=== PATIENT | male | born 1950 | race Caucasian/White ===

== ENCOUNTER → 2020-08-02 | Outpatient (CLI) | payer BC, MEDICARE ==
[~2020-08-02] MED LIST: LISI-170 PO; OMEP40CA42 PO; SIMV40TA20 PO
== END | disposition home or self-care (01) ==
LOC: STAR 15:56
PROVIDERS: ATTEND Anesthesiology
DX: Z01.812 Encounter for preprocedural laboratory examination (principal); Z20.828 Contact with and (suspected) exposure to other viral communicable diseases
CPT/HCPCS: 36415; 87635

== ENCOUNTER 2020-08-06 06:51 | Day surgery (SDC) | payer BC, MEDICARE ==
[~2020-08-06] VITALS: Ht 177.8 cm; Wt 62.7 kg
[2020-08-06] MEDS ORDERED: LACTATED RINGERS 1,000 ML IV SCH (07:33)
[2020-08-06] MEDS ORDERED: LISI-170 PO (07:38)
[2020-08-06] MEDS ORDERED: OMEP40CA42 PO (07:38)
[2020-08-06] MEDS ORDERED: SIMV40TA20 PO (07:38)
[2020-08-06 07:41] VITALS: BP 138/93
[2020-08-06] MEDS ORDERED: CHLORHEXIDINE 15 ML UDC MM ONE (08:00)
[2020-08-06] MEDS ORDERED: FENTANYL PF 100 MCG/2ML IV PRN (08:00)
[2020-08-06] MEDS ORDERED: PROMETHAZINE 25 MG/ML, 1ML IVPush PRN (08:00)
[2020-08-06 08:24] LABS: BASOPHILS # (AUTO) 0.04 x10^3/uL (0-0.1); BASOPHILS % (AUTO) 1 % (0-1); EOSINOPHILS # (AUTO) 0.21 x10^3/uL (0-0.4); EOSINOPHILS % (AUTO) 3 % (1-7); LYMPHOCYTES % (AUTO) 27 % (22-44); MD NO; MEAN CORPUSCULAR HEMOGLOBIN 30.6 pg (27.5-34.5); MEAN CORPUSCULAR HGB CONC 32.4 g/dL (33.2-36.2); MEAN PLATELET VOLUME 7.6 fL (7.4-10.4); MONOCYTES # (AUTO) 0.71 x10^3/uL (0.2-0.8); MONOCYTES % (AUTO) 11 % (2-9); NEUTROPHILS # (AUTO) 3.61 x10^3/uL (1.8-6.8); NEUTROPHILS % (AUTO) 58 % (42-75); PLATELET COUNT 448 x10^3/uL (130-400); RED BLOOD COUNT 4.31 x10^6/uL (4.38-5.82); RED CELL DISTRIBUTION WIDTH 14.5 % (9.4-14.8)
[2020-08-06 08:31] LABS: ALANINE AMINOTRANSFERASE 24 U/L (12-78); ALBUMIN 3.7 g/dL (3.4-5.0); ANION GAP 5 mmol/L (5-15); CALCIUM 9.8 mg/dL (8.5-10.1); CHLORIDE 106 mmol/L (98-107)
[2020-08-06 08:34] LABS: ALKALINE PHOSPHATASE 91 U/L (45-117); BILIRUBIN,TOTAL 0.3 mg/dL (0.2-1.0); CREATININE 1.25 mg/dL (0.7-1.3); TOTAL PROTEIN 8.2 g/dL (6.4-8.2)
[2020-08-06] MEDS ORDERED: PHENYLEPHRINE 10 MG/ML ONE (08:53)
[2020-08-06] MEDS ORDERED: EPHEDRINE 50 MG/ML, 1ML ONE (08:53)
[2020-08-06] MEDS ORDERED: PROPOFOL 10 MG/ML, 20ML ONE (08:53)
[2020-08-06] MEDS ORDERED: FENTANYL PF 100 MCG/2ML ONE (09:13)
[2020-08-06] MEDS ORDERED: MIDAZOLAM 1 MG/ML, 2ML ONE (09:13)
== END 2020-08-06 11:35 | disposition home or self-care (01) ==
LOC: OUT 06:51
PROVIDERS: ATTEND Internal Medicine
DX: K85.90 Acute pancreatitis without necrosis or infection, unspecified (principal); K86.1 Other chronic pancreatitis; K29.70 Gastritis, unspecified, without bleeding; B17.9 Acute viral hepatitis, unspecified; K21.9 Gastro-esophageal reflux disease without esophagitis; I70.0 Atherosclerosis of aorta; I10 Essential (primary) hypertension; I69.351 Hemiplegia and hemiparesis following cerebral infarction affecting right dominant side; Z79.899 Other long term (current) drug therapy; Z87.891 Personal history of nicotine dependence
CPT/HCPCS: 36415; 43242; 80053; 85025; 88172; 88173; 88177; 88307; 93005; J2250; J2370; J2704; J3010; J7120